=== PATIENT | male | born 1965 | race Caucasian/White ===

== ENCOUNTER 2019-05-20 21:20 | Emergency (ER) | payer OTHER ==
--- OUTSIDE RECORDS SUMMARY | 2019-05-20 21:24 | XMS REPORT | Continuity of Care Document ---
:1965 External Reference #:[id number] Author Name Shaun Hale D.O. Address [address] [place] [id number] Care Team Providers Name Role Phone [facility] - Care Team Information Business Development Officer [phone] Gastroenterology HCP given Care Team Information Business Development Officer Unavailable Problems Description No Information Available Social History Type Date Description Comments Sex Unknown Allergies, Adverse Reactions, Alerts Description No Known Drug Allergies Medications Active Medications SIG Qnty Indications Ordering Provider Date Clonidine HCL take 1 tablet by 30tabs G47.00 Shaun Hale, 04/06/2019 0.1mg mouth at night D.O. Tablets every 8 hours as needed for insomnia/anxiety/ blood pressure Propranolol HCL 1 -2 as needed up 30tabs R03.0 Shaun Hale, 02/19/2014 20mg to twice a day D.O. Tablets Immunizations CPT Code Status Date Vaccine Lot # [id number] Given 07/30/2014 Adacel or Boostrix, TDaP [id number] Given 04/19/1999 Flu, Split Virus 3Yrs Vital Signs Date Vital Result Comment 04/06/2019 4:46pm BP Systolic 136 mmHg BP Diastolic 80 mmHg Height 74.25 inches 6'2.25" Weight 185.00 lb BMI (Body Mass Index) 23.6 kg/m2 01/31/2018 2:43pm BP Systolic 130 mmHg BP Diastolic 90 mmHg BP Systolic Recheck 120 mmHg second check BP Diastolic Recheck 80 mmHg second check Height 74.25 inches 6'2.25" Weight 193.00 lb BMI (Body Mass Index) 24.6 kg/m2 Results Description No Information Available Procedures Description No Information Available Medical Devices Description No Information Available Encounters Type Date Location Provider Dx Diagnosis Office Visit 04/06/2019 Main Office Shaun Hale, R03.0 Elevated 4:30p D.O. blood-pressure reading, w/o diagnosis of htn G47.00 Insomnia, unspecified J30.9 Allergic rhinitis, unspecified Z68.23 Body mass index (BMI) 23.0-23.9, adult Assessments Date Code Description Provider 04/06/2019 R03.0 Elevated blood-pressure reading, without Shaun Hale D.O. diagnosis of hypert 04/06/2019 G47.00 Insomnia, unspecified Shaun Hale D.O. 04/06/2019 J30.9 Allergic rhinitis, unspecified Shaun Hale D.O. 04/06/2019 Z68.23 Body mass index (BMI) 23.0-23.9, adult Shaun Hale D.O. Plan of Treatment Future Appointment(s):05/01/2019 1:30 pm - Shaun Hale D.O. at Main Jsxvyt1604/06/2019 - Shaun Hale D.O.R03.0 Elevated blood-pressure reading, without diagnosis of hypertFollow up:as gwaltucsoF45.00 Insomnia, unspecifiedNew Medication:Clonidine HCL 0.1 mg - take 1 tablet by mouth at night every 8 hours as needed for insomnia/anxiety/blood xsieimtpY12.9 Allergic rhinitis, unspecifiedReferral:[facility], Allergy & ZlcanotqmqP47.23 Body mass index (BMI) 23.0-23.9, adult Functional Status Description No Information Available Mental Status Description No Information Available Referrals Refer to Reason for Referral Status Appt Date [facility] Allergic bronchitis and rhinitis [facility] would like to pursue allergy testing for prevention of exacerbations [address] [place] [address] [phone]
[2019-05-20 21:41] VITALS: BP 134/89
--- NOTE | 2019-05-20 21:46 | UC ---
Upper Extremity HPI - HPI Summary HPI Summary: has had Left thumb pain for 3-4 days. no known injury but has had similar problem in past that required antibiotics. 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 - History of Current Complaint Stated Complaint: FINGER PAIN Time Seen by Provider: 05/20/19 21:33 Hx Obtained From: Patient Onset/Duration: Gradual Onset Severity Initially: Mild Severity Currently: Moderate Location Of Pain: Is Discrete @ - L thumb cuticle Character: Burning Aggravating Factor(s): Other - pressure Alleviating Factor(s): Nothing Associated Signs And Symptoms: Positive: Swelling, Redness Related History: Similar Episode/Dx As - skin infection - Allergies/Home Medications Allergies/Adverse Reactions: Allergies Allergy/AdvReac Type Severity Reaction Status Date / Time No Known Allergies Allergy Verified 05/20/19 21:41 PMH/Surg Hx/FS Hx/Imm Hx Previously Healthy: Yes Cardiovascular History: Hypertension - Surgical History Surgical History: Yes Surgery Procedure, Year, and Place: wisdom teeth - Family History Known Family History: Positive: Hypertension - Social History Occupation: Employed Full-time Lives: With Family Alcohol Use: None Substance Use Type: None Smoking Status (MU): Never Smoked Tobacco Review of Systems All Other Systems Reviewed And Are Negative: Yes Constitutional: Positive: Negative Skin: Positive: Other - L thumb pain Respiratory: Positive: Negative Cardiovascular: Positive: Negative Musculoskeletal: Positive: Negative. Negative: Arthralgia Neurological: Positive: Negative Psychological: Positive: Negative Is Patient Immunocompromised?: No Physical Exam Triage Information Reviewed: Yes Appearance: Well-Appearing, No Pain Distress, Well-Nourished Vital Signs Reviewed: Yes Respiratory Exam: Normal Cardiovascular Exam: Normal Musculoskeletal: Positive: Strength Intact, ROM Intact Neurological Exam: Normal Skin Exam: Other - mildly erythemic and tender area L thumb along lateral aspect nail/cutical, no white or raised area Upper Extremity Course/Dx - Differential Dx/Diagnosis Differential Diagnosis/HQI/PQRI: Contusion, Other - cellulitis Provider Diagnosis: Paronychia of finger Discharge ED - Sign-Out/Discharge Documenting (check all that apply): Patient Departure All imaging exams completed and their final reports reviewed: No Studies - Discharge Plan Condition: Good Disposition: HOME Prescriptions: Cephalexin CAP* [Keflex CAP*] 500 mg PO TID #21 cap Patient Education Materials: Paronychia (ED) Referrals: Shaun Hale DO [Primary Care Provider] - 2 Days (if symptoms no better) Additional Instructions: elevate hand and apply warm packs take Keflex as prescribed return if pain or swelling worsens - Billing Disposition and Condition Condition: GOOD Disposition: Home
[2019-05-20] MEDS ORDERED: Cephalexin CAP* 500 MG PO ONE ×2 (21:57→22:07)
== END 2019-05-20 22:15 | disposition home or self-care (01) ==
LOC: UCEAST 21:20
DX: L03.012 Cellulitis of left finger (principal); I10 Essential (primary) hypertension
CPT/HCPCS: 99212; A9270-GY; G0463